=== PATIENT | female | born 1995 | race Hispanic/Latino ===

== ENCOUNTER 2022-12-10 18:46 | Emergency (ER) | payer BC | END 2022-12-10 22:06 | disposition home or self-care (01) | LOC: ERS 18:46 | DX: N64.4 Mastodynia (principal); N60.02 Solitary cyst of left breast | CPT/HCPCS: 99283 ==

== ENCOUNTER 2022-12-27 07:45 | Outpatient (CLI) | payer BC | END 2022-12-27 07:46 | disposition home or self-care (01) | LOC: BICULT 07:45 | PROVIDERS: ATTEND Nurse Practitioner Family | DX: N60.01 Solitary cyst of right breast (principal); N60.02 Solitary cyst of left breast; R92.2 Inconclusive mammogram ==

== ENCOUNTER 2023-01-22 15:09 | Outpatient (CLI) | payer BC | END 2023-01-22 15:10 | disposition home or self-care (01) | LOC: BICRAD 15:09 | PROVIDERS: ATTEND Nurse Practitioner Family | DX: M54.2 Cervicalgia (principal) | CPT/HCPCS: 72040 ==